=== PATIENT | female | born 1955 | race Caucasian/White ===

== ENCOUNTER → 2019-11-25 11:40 | Outpatient (BNVA) | payer OTHER, SELFPAY | PROVIDERS: PCP Nurse Practitioner Family; Referring Provider Nurse Practitioner Family; Visit Provider Orthopaedic Surgery | DX: S83.232S Complex tear of medial meniscus, current injury, left knee, sequela (principal); G89.18 Other acute postprocedural pain; Z79.899 Other long term (current) drug therapy | CPT/HCPCS: 99212 ==

== ENCOUNTER 2019-12-06 09:21 | Outpatient (REF) | payer OTHER, SELFPAY | END 2019-12-06 09:22 | disposition home or self-care (01) | LOC: HO.LAB 09:21 | PROVIDERS: Visit Provider Internal Medicine | DX: Z20.828 Contact with and (suspected) exposure to other viral communicable diseases (principal) | CPT/HCPCS: 87635 ==

== ENCOUNTER 2020-01-31 11:00 | Outpatient (RCR) | payer OTHER, SELFPAY ==
--- NOTE | 2019-12-21 13:17 | MHC.PT.EP ---
[facility] [place] Office [place] Office [place] Office [address]ía [address] [phone] F: [phone] F: [phone] F: [phone] F: [phone] Physical Therapy Plan of Care Date of Evaluation: 12/21/19 Date of Surgery: 10/13/19 Diagnosis: L knee meniscectomy Assessment: Patient is a 64 year old R handed female who presents with s/s consistent with L knee meniscectomy. She does not work but does enjoy walking and staying active. Patient past medical history includes 3 R foot surgeries and heart murmur. Current impairments include pain, ROM, strength, safety, independence, activity tolerance and functional mobility. Functional limitations include decreased ability to walk, stand, transfer, negotiate stairs, and perform weight bearing activities.. Patient is motivated with good rehab potential. Skilled PT will address impairments and functional limitations in order to achieve goals. Frequency and Duration: The patient will be seen 2x/week for 6 weeks Short Term Goals: I with HEP - 2 weeks AROM 0-120 - 3 weeks Quad set good - 3 weeks Sap Consultant Goals: Swelling absent - 5 weeks LEFS 40/80 - 5 weeks AROM 0-130 - 5 weeks STrength 4+/5 grossly - 6 weeks Treatment Plan: Modalities to reduce pain, spasms and effusion. Manual therapy to restore motion and function. Therapeutic exercise to improve strength and flexibility. Neuromuscular re-education for posture and balance. Therapeutic activities to return to functional activities of daily living. Please sign and return to therapist. Thank you for your referral.
--- NOTE | 2020-02-23 09:49 | MHC.PT.DC ---
[facility] [place] Office [place] Office [place] Office [address] Izzy García 140 [facility] [phone] F: [phone] F: [phone] F: [phone] F: [phone] Physical Therapy Discharge Report Diagnosis: L knee meniscectomy Date of Surgery: 10/13/19 Date of Evaluation: 12/21/19 Date of Discharge: 02/23/20 Treatments to Date: 9 Cancellations to Date: 0 No Shows to Date: 0 Discharge Status: Recommend MD Follow-up Discharge Summary: Was progressing well with strength and function. However, due to continued pain, elected to hold and pursue second opinion at this time. Electronically signed by: Mayo Holland PT Please sign and return to therapist. Thank you for your referral.
== END 2020-02-23 09:49 | disposition home or self-care (01) ==
LOC: HO.PTCHIC 11:00
PROVIDERS: PCP Nurse Practitioner Family; Visit Provider Orthopaedic Surgery
DX: S83.232D Complex tear of medial meniscus, current injury, left knee, subsequent encounter (principal)
CPT/HCPCS: 97110; 97112; 97140; 97161

== ENCOUNTER 2020-03-12 13:01 | Outpatient (REF) | payer OTHER, SELFPAY ==
--- NOTE | 2020-03-12 | MM_ITS ---
EXAMINATION: BONE DENSITOMETRY CLINICAL INDICATION: Screening for osteoporosis. COMPARISON: This is the patient's baseline examination. TECHNIQUE: Using a [employer] DXA System (software version: 13.1) manufactured by [employer], dual-energy x-ray absorptiometry was performed of the lumbar spine and left hip. The images are of good technical quality. Summary results are attached. FINDINGS: AP SPINE L1-L4: BMD 0.999 g/cm2, Z-score -0.3, T-score -1.5, osteopenia. LEFT FEMUR, NECK: BMD 0.686 g/cm2, Z-score -1.3, T-score -2.5, osteoporosis. LEFT FEMUR, TOTAL: BMD 0.728 g/cm2, Z-score -1.3, T-score -2.2, osteopenia. IDENTIFIED RISK FACTORS: Rheumatoid arthritis, recurrent falls. Early menopause, secondary osteoporosis. HISTORY OF FRACTURE: None listed. MEDICATIONS: Vitamin D. MM/XR DEXA axial skeleton IMPRESSION: 1. DIAGNOSIS: Osteoporosis based on the lowest T-score value of -2.5 in the femoral neck applying World Health Organization criteria. 2. 10-YEAR FRACTURE RISK PREDICTION, FRAX: Major osteoporotic fracture (clinical spine, forearm, hip or shoulder) 9.7%. Hip fracture 2.2%. 3. Treatment Recommendations: NOF guidelines recommend consideration for treatment in postmenopausal women and men age 50 and older presenting with the following: -A hip or vertebral (clinical or morphometric) fracture. -T-score less than or equal to -2.5 at the femoral neck or spine after appropriate evaluation to exclude secondary causes. -Low bone mass at the hip or spine and a 10-year fracture probability by FRAX of greater than or equal to 3% for hip fracture or greater than or equal to 20% for major osteoporotic fracture based on the [place] adapted WHO algorithm. 4. Other Recommendations: All treatment decisions require clinical judgment and consideration of individual patient factors, including patient preferences, comorbidities, previous drug use, risk factors not captured in the FRAX model (e.g. frailty, falls, vitamin D deficiency, increased bone turnover, interval significant decline in bone density) and possible under or overestimation of fracture risk by FRAX. Additional medical evaluation for secondary cause of low bone mineral density may be appropriate. FUTURE SCAN RECOMMENDATION: People with diagnosed cases of osteoporosis or at high risk for fracture should have regular bone mineral density tests. For patients eligible for Medicare, routine testing is allowed once every 2 years. The testing frequency can be increased to one year for patients who have rapidly progressing disease, those who are receiving or discontinuing medical therapy to restore bone mass, or have additional risk factors.
--- NOTE | 2020-03-12 | MM_ITS ---
EXAMINATION: MM SCREENING DIGITAL BREAST TOMOSYNTHESIS, BILATERAL CLINICAL INFORMATION: Screening. Asymptomatic. The lifetime risk of breast cancer based on the Tyrer-Cuzick Model is 9.4%. COMPARISON: Mammography: January 20, 2018 and studies dating back to June 27, 2011 TECHNIQUE: Digital breast tomosynthesis is performed in both the craniocaudal and mediolateral oblique views along with computer-aided detection (CAD). Synthesized 2D images are generated from the tomosynthesis. Exaggerated craniocaudal view of the right breast also performed. FINDINGS: The breasts are heterogeneously dense, which may obscure small masses (ACR BI-RADS breast composition Category c). There are no significant masses, abnormal calcifications, or other abnormalities. MM/MM tomosynthesis screening BI IMPRESSION: There are no significant changes from prior study. ASSESSMENT: BI-RADS 1: Negative RECOMMENDATION: Routine annual mammography screening. This patient's information was entered into a reminder system with a target due date for their next mammogram.
== END 2020-03-12 13:02 | disposition home or self-care (01) ==
LOC: HO.MAMMO 13:01
PROVIDERS: PCP Nurse Practitioner Family; Visit Provider Nurse Practitioner Family
DX: Z12.31 Encounter for screening mammogram for malignant neoplasm of breast (principal); N95.9 Unspecified menopausal and perimenopausal disorder; M81.0 Age-related osteoporosis without current pathological fracture
CPT/HCPCS: 77063; 77067; 77080

== ENCOUNTER 2020-07-12 11:24 | Outpatient (REF) | payer OTHER, SELFPAY ==
--- NOTE | ~2020-07-12 | XR_ITS ---
EXAMINATION: XR SHOULDER, RIGHT CLINICAL INFORMATION: Right shoulder pain. COMPARISON: None. TECHNIQUE: AP external rotation, Grashey, scapular Y, and axillary views of the right shoulder. FINDINGS: 2 bone anchors are seen in the humeral head. Mild degenerative changes are seen at the rotator cuff insertion at the greater tuberosity. Mild right acromioclavicular degenerative joint changes are seen. The soft tissues are unremarkable. XR/XR shoulder RT min 2V IMPRESSION: Postsurgical changes and mild degenerative changes in the right shoulder without acute abnormality.
[2020-07-12 12:12] LABS: MANUAL DIFF FLAG NO
[2020-07-12 12:19] LABS: Basophils Percent Auto 0.5 % (0-2); Eosinophils Absolute Auto 0.2 X10*3/uL (0.0-0.4); Eosinophils Percent Auto 3.2 % (0-4); Hematocrit 39.1 % (37-47); Hemoglobin 12.9 g/dl (12.0-16.0); Imm Gran Abs Auto 0.01 X10*3/uL (0.00-0.03); Imm Gran Pct Auto 0.2 % (0.0-0.4); Lymphocytes Percent Auto 35.2 % (20-40); Mean Corpuscular Hemoglobin 29.5 pg (27.0-33.0); Mean Corpuscular Volume 89.5 fL (80-98); Mean Platelet Volume 12.4 fL (9.4-12.3); Monocytes Absolute Auto 0.3 X10*3/uL (0.1-1.2); Monocytes Percent Auto 4.8 % (2-11); Neutrophils Absolute Auto 3.1 X10*3/uL (2.0-8.3); Neutrophils Percent Auto 56.1 % (45-73); Platelet Count 299 X10*3/uL (160-400); Red Blood Count 4.37 X10*6/uL (4.20-5.50); Red Cell Distribution Width 12.6 % (11.0-16.0); White Blood Count 5.6 X10*3/uL (4.8-10.8)
[2020-07-12 12:22] LABS: Estimated Average Glucose 177 mg/dL; Hemoglobin A1c % 7.8 %
[2020-07-12 12:57] LABS: Thyroid Stimulating Hormone 1.53 uIU/mL (0.32-4.0)
[2020-07-12 13:05] LABS: Alanine Aminotransferase 28 U/L (0-31); Albumin Level 4.3 g/dL (3.5-5.0); Alkaline Phosphatase 103 U/L (39-117); Anion Gap 12 (12-20); Aspartate Amino Transferase 24 U/L (5-31); Bilirubin Direct 0.3 mg/dL (0.0-0.5); Bilirubin Total 0.7 mg/dL (0.0-1.0); Blood Urea Nitrogen 13 mg/dL (9-16); Calcium 9.6 mg/dL (8.4-10.2); Carbon Dioxide 28 mmol/L (22-29); Chloride 105 mmol/L (96-108); Cholesterol 182 mg/dL; Estimated Glomerular Filt Rate > 60; Glucose Random 160 mg/dL (60-115); HDL Cholesterol 42 mg/dL; LDL Cholesterol Calculated 119 mg/dl; Potassium 4.4 mmol/L (3.3-5.1); Sodium 141 mmol/L (135-145); Total Protein 7.4 g/dL (6.5-8.0); Triglycerides 106 mg/dL
[2020-07-12 13:14] LABS: Rheumatoid Factor < 15.0 IU/mL (<15.0)
[2020-07-12 13:33] LABS: Erythrocyte Sedimentation Rate 33 MM/HR (0-20)
[2020-07-12 13:36] LABS: T4 Thyroxine 8.4 ug/dL (4.5-12.0)
[2020-07-13 10:01] LABS: Triiodothyronine T3 Total 102 ng/dL (76-181)
[2020-07-13 14:07] LABS: Anti Nuclear Antibody Screen NEGATIVE (NEGATIVE)
[2020-07-13 17:21] LABS: Cyclic Citrullinated Peptide <16 UNITS
== END 2020-07-12 11:25 | disposition home or self-care (01) ==
LOC: HO.LAB 11:24
PROVIDERS: PCP Nurse Practitioner Family; Visit Provider Nurse Practitioner Family
DX: Z00.00 Encounter for general adult medical examination without abnormal findings (principal); Z98.890 Other specified postprocedural states
CPT/HCPCS: 36415; 73030; 80048; 80061; 80076; 82306; 83036; 84436; 84443; 84480; 85025; 85652; 86038; 86039; 86140; 86200; 86431

== ENCOUNTER 2020-09-17 13:17 | Emergency (ER) | payer OTHER, SELFPAY ==
[2020-09-17 13:35] VITALS: BP 182/59; PULSE 50; RESP 18; TEMP 36.6; O2SAT 98; BMI 28.7
--- NOTE | 2020-09-17 14:54 | ED_ITS ---
HPI - Eye Problem General Chief complaint: Eye Problems Stated complaint: multiple complaints Time Seen by Provider: 09/17/20 14:22 Source: patient Mode of arrival: ambulatory Limitations: no limitations History of Present Illness HPI Narrative: This 65-year-old female with past medical history of glaucoma, hypertension, hyperlipidemia, diabetes, anxiety and depression, who uses eyedrops for glaucoma and who saw her security patrol officer 3 days ago presents for 2 weeks of bilateral eye pain. Patient states that her right eye feels like it has dirt in it, and feels scratchy. Her vision feels cloudy. Patient has had bilateral eye pain for 2 weeks, her eye doctor on Thursday said she had dry eye. She has been using refresh. The last 2 days her vision in her right eye is worsened, right eye feels scratchy like there is sand in there. She is not photophobic, no nausea or vomiting. States her eye pressure was okay at her security patrol officer on Thursday. chief complaint: eye pain Onset (ago): day(s) (2) Onset description: sudden Duration: constant Location: right eye Eye Symptoms: foreign body sensation Place: home Mechanism: other (history dry eyes) Severity: moderate Associated symptoms: none Treatments Prior to Arrival: OTC eye drops Related Data Home Medications Medication Instructions Recorded Confirmed atorvastatin PO 11/25/19 11/25/19 gabapentin 300 mg capsule 300 mg PO DAILY 11/25/19 11/25/19 metformin PO 11/25/19 11/25/19 Previous Rx's Medication Instructions Recorded diclofenac sodium 75 mg 75 mg PO BID #60 tab 11/25/19 tablet,delayed release erythromycin 5 mg/gram (0.5 %) eye 0.5 inch OPHTHALMIC (EYE) QID 5 09/17/20 ointment Days #3.5 g Allergies Allergy/AdvReac Type Severity Reaction Status Date / Time No Known Allergies Allergy Verified 11/25/19 11:57 [No Known Allergies*] Review of Systems Review of Systems: Constitutional : No Weight loss, No Fever, No Chills, No Night Sweats,No Fatigue, No Malaise ENT/Mouth : No Hearing loss, No Ear Pain, No Nasal Congestion, NoSinus Pain, No Hoarseness, No sore throat, No Rhinorrhea, NoSwallowing Difficulty Eyes: right eye pain, foreign body sensation, vision more blurry right eye No Swelling, No Redness, , NoDischarge Cardiovascular : No Chest Pain, No SOB, No Dyspnea on Exertion, NoOrthopnea, No Edema, No Palpitations Respiratory : No Cough, No Sputum, No Wheezing, No Smoke Exposure, No Dyspnea Gastrointestinal : No Nausea, No Vomiting, No Diarrhea, NoConstipation, No abdominal Pain, No Hematochezia, No Melena Genitourinary : no irregular bleeding, No Dysuria, No UrinaryFrequency, No Hematuria, No Urinary Incontinence, No Urgency, No FlankPain, No Urinary Flow Changes, No Hesitancy Musculoskeletal : No joint pain, No Myalgias, No Joint Swelling Skin : No Skin Lesions, No rash Neuro : No Weakness, No Numbness, No Paresthesias, No Loss ofConsciousness, No Dizziness, No Headache Psych : No Anxiety/Panic, No Depression, No SI/HI/AH/VH, No Social Issues, Heme/Lymph: No Bruising, No Bleeding,No Lymphadenopathy Endocrine : No Polyuria, No Polydipsia, No Temperature Intolerance Yes all other systems are reviewed and are negative [facility] Past Medical History Medical History Diabetes Glaucoma High blood pressure High cholesterol Social History Social History Alcohol intake: never Advance Directives: Yes Advance Directives Information Provided: Yes Advance Directives on File: No Current occupational status: unemployed Current occupation: Right Handed Physical Exam Vital Signs: Vital Signs: Last Vital Signs Temp 97.9 F 09/17/20 13:35 Pulse 50 09/17/20 13:35 Resp 18 09/17/20 13:35 BP 182/59 H 09/17/20 13:35 Pulse Ox 98 09/17/20 13:35 Body Mass Index 28.7 Appearance: Alert. Oriented X3. No acute distress. Head: Normal external exam. Normocephalic. Atraumatic. ?No Chase signs noted. No raccoon eyes noted Eyes: PERRLA. EOMI. Conjunctiva and sclera normal. Eyelids normal. Fluorescein stain reveals small punctate corneal abrasion. Kam-Pen shows intra-ocular pressure of 80 in right eye and intraocular pressure of 12 in left eye ENT: EAC normal. TM's Normal. Pharynx normal. Uvula midline. Moist mucous membranes. ??No trismus noted. ?No drooling noted. ?No muffled voice noted. Neck: Normal inspection. Neck supple. FROM. No adenopathy. Thyroid Normal. No meningeal signs. No neck mass noted. CVS: Normal heart rate and rhythm. Heart sound normal. Pulses normal throughout. ?No murmurs/rales/gallops. Respiratory: No respiratory distress. Painless inspiration. Breath sounds normal. No wheezes/rales/rhonchi noted. Chest nontender. ??No accessory muscle usage noted or decreased air movement noted. Abdomen: Soft and nontender. Bowel sounds normal in all 4 quadrants. No distention noted. ?No organomegaly noted. ?No visible injury noted. Back: ?No CVA tenderness. ?Full range of motion noted. ?No rashes/lesion/induration/fluctuance or signs of infection noted. Skin: Skin warm and dry. ?Normal skin color. ?Normal skin turgor. No rashes/lesions/lacerations noted. Extremities: No lower extremity edema. ??Extremities exhibit normal range of motion. ?Extremities nontender. Neuro: Oriented X 3. ?No motor deficit. ?No sensory deficit. ?Reflexes normal. ?Normal steady gait. ?No focal neuro deficits noted. Vascular: + radial pulses/+ 2 distal pedal pulses/+2 dorsalis pedis b/l. ?Normal cap refill. ?No cyanosis noted to upper extremity nails and lower extremity toes nails. Course Course Course Narrative: 65-year-old female with past medical history of glaucoma and dryeyes, who saw her security patrol officer on Thursday and reports a normal exam, presents for 2 days of right eye pain. Patient feels she has sand in her eye, it feels scratchy and like her vision is blurry. She is using her glaucoma drops. On exam, patient has pupils equal and reactive to light, normal accommodation, normal visual roman by confrontation, intact EOMs. On exam, there is no injected conjunctivae, patient has no foreign body under her eyelids. Kam-Pen shows no increased intra-ocular pressure. Fluorescein stain shows punctate corneal abrasion at 2 o'clock.. Treated patient with erythromycin ointment, gave her [facility] phone number as our security patrol officer is on vacation this week. Consulted patient to follow-up with [facility] tomorrow. Gave return precautions. Discharge Plan Discharge Clinical Impression: Corneal abrasion Qualifiers: Encounter type: initial encounter Laterality: right Qualified Code(s): S05.01XA - Injury of conjunctiva and corneal abrasion without foreign body, right eye, initial encounter Patient Disposition: Home, Self-Care Instructions: Corneal Abrasion (ED) Additional Instructions: Please send prescription for antibiotic eye ointment and use for the next 5 days. Please call [facility] for a follow up appointment tomorrow. The phone number is [phone]. Please return to the emergency room if you have any sudden visual changes, worsening eye pain, sudden headache, nausea or vomiting Prescriptions: New erythromycin 5 mg/gram (0.5 %) ointment 0.5 inch ophthalmic (eye) QID 5 Days Qty: 3.5 RF: 0 No Action gabapentin 300 mg capsule 300 mg PO DAILY RF: 0 metformin PO RF: 0 atorvastatin PO RF: 0 diclofenac sodium 75 mg tablet,delayed release (DR/EC) 75 mg PO BID Qty: 60 RF: 2 Interventions: ED Discharge Assessment Last Done: 09/17/20 15:24 Discharge Date/Time: 09/17/20 15:24
[2020-09-17] MEDS: Fluorescein Sodium STRIP 1 STRIP EYE-RIGHT (15:13)
[2020-09-17] MEDS: Tetracaine HCl/PF 0.5% Oph Sol 4 ML DROPS 3 DROP EYE-RIGHT (15:14)
== END 2020-09-17 15:24 | disposition home or self-care (01) ==
PROVIDERS: Emergency Provider Emergency Medicine; PCP Nurse Practitioner Family
DX: S05.01XA Injury of conjunctiva and corneal abrasion without foreign body, right eye, initial encounter (principal); H57.13 Ocular pain, bilateral; X58.XXXA Exposure to other specified factors, initial encounter; Y93.9 Activity, unspecified; Y92.9 Unspecified place or not applicable; Y99.9 Unspecified external cause status; Z79.899 Other long term (current) drug therapy
CPT/HCPCS: 99283

== ENCOUNTER 2020-09-19 10:26 | Emergency (ER) | payer OTHER, SELFPAY ==
[2020-09-19 10:38] VITALS: BP 153/52; PULSE 49; RESP 16; TEMP 36.9; O2SAT 96; BMI 28.7
--- NOTE | 2020-09-19 12:49 | ED_ITS ---
HPI - Eye Problem General Chief complaint: Eye Problems Stated complaint: eye issues Time Seen by Provider: 09/19/20 11:37 History of Present Illness HPI Narrative: Patient complains of scratchy feeling in the right eye for the last 2 weeks, she did see her eye doctor Dr. Hernandez 5 days ago for this same problem and he felt it was because her eye was dry and she continues to have the same feeling with no vision loss no discharge from the eye no of pain with light no injury Related Data Home Medications Medication Instructions Recorded Confirmed atorvastatin PO 11/25/19 11/25/19 gabapentin 300 mg capsule 300 mg PO DAILY 11/25/19 11/25/19 metformin PO 11/25/19 11/25/19 Previous Rx's Medication Instructions Recorded diclofenac sodium 75 mg 75 mg PO BID #60 tab 11/25/19 tablet,delayed release erythromycin 5 mg/gram (0.5 %) eye 0.5 inch OPHTHALMIC (EYE) QID 5 09/17/20 ointment Days #3.5 g Allergies Allergy/AdvReac Type Severity Reaction Status Date / Time No Known Allergies Allergy Verified 11/25/19 11:57 [No Known Allergies*] Review of Systems Review of Systems: Positive for scratchy feeling in the right eye Negatives are no fever no chills no dizziness no headache no skin rash no photophobia no discharge from the eye no loss of vision Yes all other systems are reviewed and are negative REPLACED BY [facility] Past Medical History Source: nursing notes reviewed Medical History Diabetes Glaucoma High blood pressure High cholesterol Social History Social History Alcohol intake: never Current occupational status: unemployed Current occupation: Right Handed Physical Exam Vital Signs: Vital Signs: Last Vital Signs Temp 98.5 F 09/19/20 10:38 Pulse 49 L 09/19/20 10:38 Resp 16 09/19/20 10:38 BP 153/52 H 09/19/20 10:38 Pulse Ox 96 09/19/20 10:38 Body Mass Index 28.7 Course Course Course Narrative: I did a brief history with this patient but did not do a physical exam and she eloped from the ER Nursing had done a visual acuity which was 20/40 bilaterally My brief interaction with her she did not appear to have any photophobia or discharge from her eyes and her extraocular motions were intact but I did not do any close eye exam and no further exam was possible as patient was gone Discharge Plan Discharge Clinical Impression: Eye irritation Patient Disposition: Elopement Prescriptions: No Action erythromycin 5 mg/gram (0.5 %) ointment 0.5 inch ophthalmic (eye) QID 5 Days Qty: 3.5 RF: 0 gabapentin 300 mg capsule 300 mg PO DAILY RF: 0 metformin PO RF: 0 atorvastatin PO RF: 0 diclofenac sodium 75 mg tablet,delayed release (DR/EC) 75 mg PO BID Qty: 60 RF: 2 Interventions: ED Discharge Assessment Last Done: 09/19/20 13:02 Discharge Date/Time: 09/19/20 11:55
== END 2020-09-19 11:55 | disposition left against medical advice (07) ==
PROVIDERS: Emergency Provider Emergency Medicine Emergency Medical Services
DX: H57.89 Other specified disorders of eye and adnexa (principal); E11.9 Type 2 diabetes mellitus without complications; Z79.84 Long term (current) use of oral hypoglycemic drugs
CPT/HCPCS: 99283; 99284

== ENCOUNTER → 2020-12-07 12:59 | Outpatient (BNVA) | payer OTHER, SELFPAY | PROVIDERS: Visit Provider Physician Assistant | DX: S83.232D Complex tear of medial meniscus, current injury, left knee, subsequent encounter (principal); Z98.1 Arthrodesis status | CPT/HCPCS: 99212 ==

== ENCOUNTER 2021-01-28 11:22 | Outpatient (REF) | payer OTHER, SELFPAY ==
[2021-01-28 12:41] LABS: COVID-19 Test Negative (Negative); IDNOW Serial# 16C4AD1C
== END 2021-01-28 11:23 | disposition home or self-care (01) ==
LOC: HO.LAB 11:22
PROVIDERS: Visit Provider Internal Medicine
DX: Z20.822 Contact with and (suspected) exposure to COVID-19 (principal)
CPT/HCPCS: 36415; 87635; C9803

== ENCOUNTER 2021-02-13 10:34 | Emergency (ER) | payer OTHER, SELFPAY ==
--- NOTE | ~2021-02-13 | CT_ITS ---
EXAMINATION: CT HEAD WITHOUT CONTRAST CLINICAL INFORMATION: Headache COMPARISON: CT had noncontrast 08/31/2015 TECHNIQUE: Contiguous axial imaging was performed from the skull base to vertex without intravenous administration of contrast. This CT examination was performed using dose optimization techniques as appropriate, variously including the following: *Automated exposure control *Adjustment of mA and/or kV according to patient size (this includes techniques or standardized protocols for targeted exams where dose is matched to indication/reason for exam; i.e. extremities or head) *Use of iterative reconstruction technique DLP: 659 mGy-cm FINDINGS: There is no intracranial hemorrhage, hematoma, or extra-axial fluid collection. The ventricles are normal in size. There is no hydrocephalus, edema, or mass effect. The diego-white matter differentiation appears well preserved . There is a small oval lacunar infarct in the region of the right anterior internal capsule just lateral to the caudate head. Finding not seen with certainty on prior CT 2016. No mass effect or edema in this area. There is no visible acute territorial infarct or mass lesion. The calvarium appears intact. There is no pneumocephalus or orbital emphysema. The visualized sinuses and middle ears and mastoid air cells show no significant mucosal thickening. There are no air-fluid levels. CT/CT head/brain wo con IMPRESSION: 1. Lacunar infarct right anterior internal capsule, new from prior CT 2016. 2. No mass effect or edema. No intracranial hemorrhage.
[2021-02-13 11:52] VITALS: BP 181/76; PULSE 83; RESP 16; TEMP 36.8; O2SAT 96; BMI 29.2
--- NOTE | 2021-02-13 15:28 | ED_ITS ---
HPI - Headache General Chief Complaint: Headache Stated Complaint: headache 4months Time Seen by Provider: 02/13/21 14:52 Source: patient Mode of arrival: ambulatory Limitations: no limitations History of Present Illness HPI Narrative: 65-year-old female presents to the emergency department with 5-6 months of recurrent headaches. They been intermittent she has been treating them with Tylenol or ibuprofen. Her last dose of anything with several hours ago. She states she has talked to her primary care doctor over the phone. She was told that this most likely a migraine. Patient denies any history of migraine she states she has no photophobia or phonophobia she has history of neck strains. She states the location of the headache is migratory in his move all overhead at this time is on her left parietal area. She denies any falls or injuries she denies nausea vomiting or diarrhea she states she has had normal appetite. Of note the patient is in the room with a full Mera male that she just finished. Related Data Home Medications Medication Instructions Recorded Confirmed atorvastatin PO 11/25/19 11/25/19 gabapentin 300 mg capsule 300 mg PO DAILY 11/25/19 11/25/19 metformin PO 11/25/19 11/25/19 Previous Rx's Medication Instructions Recorded diclofenac sodium 75 mg 75 mg PO BID #60 tab 11/25/19 tablet,delayed release erythromycin 5 mg/gram (0.5 %) eye 0.5 inch OPHTHALMIC (EYE) QID 5 09/17/20 ointment Days #3.5 g Aqua Therapy #1 ea 12/07/20 Allergies Allergy/AdvReac Type Severity Reaction Status Date / Time No Known Allergies Allergy Verified 11/25/19 11:57 [No Known Allergies*] Review of Systems Review of Systems: Review of systems: General: Patient denies any fever chills recent illness or falls Musculoskeletal: Denies back pain or body aches or other injuries HEENT: Headache denies runny nose, ear pain Respiratory: denies shortness of breath, cough Cardiovascular: no chest pain or palpitations : denies dysuria, frequency Abdomen: no nausea vomiting denies abdominal pain Extremities: no swelling, no pain Skin: no diaphoresis Yes all other systems are reviewed and are negative [facility] Past Medical History Medical History Diabetes Glaucoma High blood pressure High cholesterol Social History Social History Alcohol intake: never Advance Directives: No Advance Directives Information Provided: Yes Current occupational status: unemployed Current occupation: Right Handed Physical Exam Vital Signs: Vital Signs: Last Vital Signs Temp 98.3 F 02/13/21 11:52 Pulse 83 02/13/21 11:52 Resp 16 02/13/21 11:52 BP 181/76 H 02/13/21 11:52 Pulse Ox 96 02/13/21 11:52 BMI result Body Mass Index 29.2 Neurological exam: CN II- XII tested. Patient is alert and oriented to person place and time. Patient has no dysphagia or dysarthia, denies good vision in all four vision roman no nystagmus on exam, good strength to upper and lower extremities with normal reflexes to brachioradialis, wrist, patella and achilles. Negative romberg, good finger to nose and heel to lantigua. General: Well-appearing well-nourished in no signs of distress HEENT: Normocephalic atraumatic Neck: No signs of JVD, no masses no tenderness or lymphadenopathy Cardiovascular: Regular rate and rhythm Respiratory: Clear to auscultation bilaterally Abdomen: Soft nontender no masses Extremities: Normal pedal pulses no signs of edema Skin: Dry warm no rashes Back: No tenderness full ROM MDM - Headache MDM Narrative Medical decision making narrative: 65-year-old female with headache for months patient has a very benign exam on arrival patient. She has had no neuro imaging so getting CT of the head all treated with Toradol and Tylenol. 1652 CT of the head is negative patient likely has migraine I will send patient home with PCP follow-up. Discharge Plan Discharge Clinical Impression: Headache Patient Disposition: Home, Self-Care Instructions: General Headache (ED) Additional Instructions: Please call follow-up your doctor if you have any other concerns please do not hesitate to come back to the emergency department. Prescriptions: No Action erythromycin 5 mg/gram (0.5 %) ointment 0.5 inch ophthalmic (eye) QID 5 Days Qty: 3.5 RF: 0 gabapentin 300 mg capsule 300 mg PO DAILY RF: 0 metformin PO RF: 0 atorvastatin PO RF: 0 diclofenac sodium 75 mg tablet,delayed release (DR/EC) 75 mg PO BID Qty: 60 RF: 2 (DME) Aqua Therapy See Rx Instructions .Route .[facility] Qty: 1 RF: 0
[2021-02-13] MEDS: Acetaminophen 325 MG TABLET 650 MG PO (15:45)
[2021-02-13] MEDS: Ketorolac Tromethamine 30 MG/ML VIAL 15 MG IM (15:45)
== END 2021-02-13 17:00 | disposition home or self-care (01) ==
PROVIDERS: Emergency Provider Student in an Organized Health Care Education/Training Program
DX: R51.9 Headache, unspecified (principal); E11.9 Type 2 diabetes mellitus without complications
CPT/HCPCS: 70450; 96372; 99283; 99284; J1885

== ENCOUNTER 2021-04-18 12:37 | Outpatient (REF) | payer OTHER, SELFPAY ==
--- NOTE | ~2021-04-18 | XR_ITS ---
EXAMINATION: XR KNEE STANDING, BILATERAL XR KNEE, RIGHT CLINICAL INFORMATION: Pain in the right knee. COMPARISON: MRI of the left knee August 2019. X-ray of the left knee December 2018. X-ray of the right knee November 2012. TECHNIQUE: Upright view of both knees. Lateral and patella views of the right knee FINDINGS: RIGHT KNEE: Patellofemoral compartment: Mild arthrosis manifested by mild joint space narrowing and probable small subchondral cystic change stable compared to prior. The medial and lateral compartments are normal. There is no effusion. LIMITED LEFT KNEE UPRIGHT: Mild osteoarthritis of the medial and lateral compartments manifested by small marginal osteophytes. XR/XR knee standing BI IMPRESSION: 1. Right knee: Mild osteoarthritis involving the patellofemoral compartment unchanged compared to prior x-ray in 2012. 2. Left knee Limited: Mild osteoarthritis unchanged.
--- NOTE | ~2021-04-18 | XR_ITS ---
EXAMINATION: XR KNEE STANDING, BILATERAL XR KNEE, RIGHT CLINICAL INFORMATION: Pain in the right knee. COMPARISON: MRI of the left knee August 2019. X-ray of the left knee December 2018. X-ray of the right knee November 2012. TECHNIQUE: Upright view of both knees. Lateral and patella views of the right knee FINDINGS: RIGHT KNEE: Patellofemoral compartment: Mild arthrosis manifested by mild joint space narrowing and probable small subchondral cystic change stable compared to prior. The medial and lateral compartments are normal. There is no effusion. LIMITED LEFT KNEE UPRIGHT: Mild osteoarthritis of the medial and lateral compartments manifested by small marginal osteophytes. XR/XR knee RT 2V IMPRESSION: 1. Right knee: Mild osteoarthritis involving the patellofemoral compartment unchanged compared to prior x-ray in 2012. 2. Left knee Limited: Mild osteoarthritis unchanged.
== END 2021-04-18 12:38 | disposition home or self-care (01) ==
LOC: HO.HOSX 12:37
PROVIDERS: Visit Provider Physician Assistant
DX: M25.561 Pain in right knee (principal); M25.562 Pain in left knee
CPT/HCPCS: 73560; 73565; 99212

== ENCOUNTER 2021-05-01 11:53 | Outpatient (REF) | payer OTHER, SELFPAY ==
--- NOTE | ~2021-05-01 | XR_ITS ---
EXAMINATION: XR SHOULDER, RIGHT CLINICAL INFORMATION: Pain in right shoulder. COMPARISON: X-ray of the right shoulder July 2020. TECHNIQUE: Three views of the right shoulder. FINDINGS: Metallic densities in the right humeral head greater tuberosity region compatible with prior surgery unchanged. Glenohumeral joint normal. Possible partial resection of distal clavicle unchanged. XR/XR shoulder RT min 2V IMPRESSION: Stable postsurgical changes. No acute abnormality. No change.
== END 2021-05-01 11:54 | disposition home or self-care (01) ==
LOC: HO.HOSX 11:53
PROVIDERS: Visit Provider Physician Assistant
DX: M75.21 Bicipital tendinitis, right shoulder (principal); M75.81 Other shoulder lesions, right shoulder
CPT/HCPCS: 20610; 73030; 99212; J1020

== ENCOUNTER 2021-05-09 09:33 | Outpatient (REF) | payer OTHER, SELFPAY ==
[2021-05-09 10:58] LABS: Cholesterol 176 mg/dL; HDL Cholesterol 48 mg/dL; LDL Cholesterol Calculated 86 mg/dl; Triglycerides 212 mg/dL
== END 2021-05-09 09:34 | disposition home or self-care (01) ==
LOC: HO.LAB 09:33
PROVIDERS: PCP Family Medicine; Visit Provider Family Medicine
DX: E11.42 Type 2 diabetes mellitus with diabetic polyneuropathy (principal)
CPT/HCPCS: 36415; 80061

== ENCOUNTER 2021-06-03 10:03 | Outpatient (REF) | payer OTHER, SELFPAY | END 2021-06-03 10:04 | disposition home or self-care (01) | LOC: HO.MAMMO 10:03 | PROVIDERS: PCP Family Medicine; Visit Provider Orthopaedic Surgery | DX: M17.10 Unilateral primary osteoarthritis, unspecified knee (principal); E11.9 Type 2 diabetes mellitus without complications; I10 Essential (primary) hypertension; E78.00 Pure hypercholesterolemia, unspecified | CPT/HCPCS: 99212 ==

== ENCOUNTER → 2021-06-24 09:47 | Outpatient (BNVA) | payer OTHER, SELFPAY | PROVIDERS: PCP Family Medicine; Visit Provider Nurse Practitioner Family | DX: M25.561 Pain in right knee (principal); M19.90 Unspecified osteoarthritis, unspecified site; M17.10 Unilateral primary osteoarthritis, unspecified knee | CPT/HCPCS: 99202 ==

== ENCOUNTER 2021-07-18 14:15 | Outpatient (REF) | payer OTHER, SELFPAY ==
--- NOTE | ~2021-07-18 | MR_ITS ---
EXAMINATION: MR SHOULDER WITHOUT CONTRAST, RIGHT CLINICAL INFORMATION: Patient reports shoulder pain. Patient reports prior rotator cuff surgery x2. COMPARISON: X-ray 05/01/2021 TECHNIQUE: MRI of the shoulder without contrast was performed on a high-field scanner. FINDINGS: Motion artifact degrading images, limiting evaluation. ROTATOR CUFF: Postsurgical changes in the greater tuberosity and humeral head. There is a metallic anchor with associated artifact. The mid to distal portion of the supraspinatus and infraspinatus tendons are difficult to visualize, with motion artifact degrading images. There may be thin irregular tendon tissue present in this region.. Full-thickness defects cannot be excluded on the provided images. Teres minor is intact. Mild subscapularis tendinosis. No muscle atrophy or fatty infiltration. BICEPS: The proximal biceps tendon is not clearly visualize, may be related to postsurgical CORACOACROMIAL ARCH: The undersurface of the acromion is curved with no subacromial spur. Mild acromioclavicular arthritis. Small fluid in the subacromial subdeltoid space. LABRUM/CAPSULE: Motion artifact limits evaluation. The superior labrum is not well visualized. No focal labral tear is otherwise seen. GLENOHUMERAL JOINT/MARROW: Mild glenohumeral joint arthritis. Postsurgical changes as detailed above. Small joint fluid. MR/MR shoulder RT wo con IMPRESSION: Additional artifact degrading images, limiting evaluation. 1. Postsurgical changes in the greater tuberosity/humeral head. The supraspinatus and infraspinatus tendons are not clearly visualized, with possible thin irregular attenuated tendon tissue present in this region. Full-thickness defects cannot be excluded. The integrity of the tendons is not been confirmed. Repeat MRI or MRI arthrogram can be obtained for further evaluation as clinically warranted. 2. Mild subscapularis tendinosis. 3. Nonvisualization of proximal biceps tendon suggesting postsurgical changes. Correlate with surgical history. 4. Mild acromioclavicular arthritis. 5. Limited evaluation of the labrum, especially the superior labrum. No definite labral tear is seen. 6 . Mild glenohumeral joint arthritis.
== END 2021-07-18 14:16 | disposition home or self-care (01) ==
LOC: HO.MRI 14:15
PROVIDERS: Visit Provider Physician Assistant
DX: M75.80 Other shoulder lesions, unspecified shoulder (principal)
CPT/HCPCS: 73221

== ENCOUNTER 2021-07-22 13:11 | Outpatient (REF) | payer OTHER, SELFPAY ==
--- NOTE | ~2021-07-22 | MM_ITS ---
EXAMINATION: MM SCREENING DIGITAL BREAST TOMOSYNTHESIS, BILATERAL CLINICAL INFORMATION: Screening. Asymptomatic. The lifetime risk of breast cancer based on the Tyrer-Cuzick Model is 8%. COMPARISON: Mammography: 03/12/2020, 01/20/2018, 01/02/2018 TECHNIQUE: Digital breast tomosynthesis is performed in both the craniocaudal and mediolateral oblique views along with computer-aided detection (CAD). Synthesized 2D images are generated from the tomosynthesis. FINDINGS: The breasts are heterogeneously dense, which may obscure small masses (ACR BI-RADS breast composition Category c). There are no significant masses, abnormal calcifications, or other abnormalities. No developing density or interval architectural changes. No significant changes from prior studies. MM/MM tomosynthesis screening BI IMPRESSION: No mammographic evidence of malignancy. ASSESSMENT: BI-RADS 1: Negative RECOMMENDATION: Routine annual mammography screening. This patient's information was entered into a reminder system with a target due date for their next mammogram.
== END 2021-07-22 13:12 | disposition home or self-care (01) ==
LOC: HO.MAMMO 13:11
PROVIDERS: Visit Provider Family Medicine
DX: Z12.31 Encounter for screening mammogram for malignant neoplasm of breast (principal)
CPT/HCPCS: 77063; 77067

== ENCOUNTER 2021-07-23 06:15 | Outpatient (REF) | payer OTHER, SELFPAY ==
--- NOTE | ~2021-07-23 | FL_ITS ---
EXAMINATION: XR FLUOROSCOPY WITH IMAGES CLINICAL INFORMATION: M25.561 - Pain in right knee COMPARISON: Radiographs right knee 04/18/2021 TECHNIQUE: Fluoroscopy performed by Dr. Taurus Alejo. Fluoroscopy time: 0.2 minutes DAP: 0.480 Gycm2 Images: 2 FINDINGS: There are spinal needles adjacent to the distal femoral shaft, medial and lateral sides, mid depth. There is a spinal needle adjacent to the proximal tibia on medial side mid depth. FL/FL guidance in treatment room IMPRESSION: Fluoroscopy for pain management procedures.
== END 2021-07-23 06:16 | disposition home or self-care (01) ==
LOC: HO.RADIR 06:15
PROVIDERS: Visit Provider Anesthesiology
DX: M17.11 Unilateral primary osteoarthritis, right knee (principal)
CPT/HCPCS: 64454

== ENCOUNTER → 2021-07-29 12:14 | Outpatient (BNVA) | payer OTHER, SELFPAY | PROVIDERS: PCP Family Medicine; Visit Provider Orthopaedic Surgery | DX: M75.80 Other shoulder lesions, unspecified shoulder (principal) | CPT/HCPCS: 99212 ==

== ENCOUNTER 2021-07-30 09:58 | Outpatient (REF) | payer OTHER, SELFPAY ==
--- NOTE | ~2021-07-30 | XR_ITS ---
EXAMINATION: XR FOOT, RIGHT XR FOOT, LEFT CLINICAL INFORMATION: Bilateral foot pain. COMPARISON: Radiographs right foot 01/10/2019, radiographs left foot 04/19/2009. TECHNIQUE: Each foot is imaged in 3 views. There are total of 6 views. FINDINGS: Right: There has been prior arthrodesis subtalar joint and calcaneocuboid. 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 This could be further characterized with noncontrast CT foot if clinically indicated. No fracture, dislocation, destructive process or osteolysis. There are moderate posterior and smaller plantar calcaneal spurs. Retrocalcaneal recess is preserved. No focal narrowing or erosive change MTP or interphalangeal joints. There is mild hallux valgus of approximately 21 degrees. Left: No fracture, dislocation, destructive process. Moderate posterior and plantar calcaneal spurs. Retrocalcaneal recess preserved. Subtalar joint unremarkable. 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 This could be further characterized with noncontrast CT fluid if clinically indicated. The MCP and interphalangeal joints show no narrowing or erosive change. XR/XR foot LT min 3V IMPRESSION: Right: -Postsurgical changes. Hardware intact. 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 -Mild hallux valgus. -Calcaneal spurs. 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 -Calcaneal spurs.
--- NOTE | ~2021-07-30 | XR_ITS ---
EXAMINATION: XR FOOT, RIGHT XR FOOT, LEFT CLINICAL INFORMATION: Bilateral foot pain. COMPARISON: Radiographs right foot 01/10/2019, radiographs left foot 04/19/2009. TECHNIQUE: Each foot is imaged in 3 views. There are total of 6 views. FINDINGS: Right: There has been prior arthrodesis subtalar joint and calcaneocuboid. 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 This could be further characterized with noncontrast CT foot if clinically indicated. No fracture, dislocation, destructive process or osteolysis. There are moderate posterior and smaller plantar calcaneal spurs. Retrocalcaneal recess is preserved. No focal narrowing or erosive change MTP or interphalangeal joints. There is mild hallux valgus of approximately 21 degrees. Left: No fracture, dislocation, destructive process. Moderate posterior and plantar calcaneal spurs. Retrocalcaneal recess preserved. Subtalar joint unremarkable. 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 This could be further characterized with noncontrast CT fluid if clinically indicated. The MCP and interphalangeal joints show no narrowing or erosive change. XR/XR foot RT min 3V IMPRESSION: Right: -Postsurgical changes. Hardware intact. 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 -Mild hallux valgus. -Calcaneal spurs. 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 -Calcaneal spurs.
== END 2021-07-30 09:59 | disposition home or self-care (01) ==
LOC: HO.XRAY 09:58
PROVIDERS: Visit Provider Nurse Practitioner Family
DX: M79.671 Pain in right foot (principal); M79.672 Pain in left foot; G89.29 Other chronic pain; Z98.1 Arthrodesis status
CPT/HCPCS: 73630; 99212

== ENCOUNTER 2021-08-02 12:47 | Outpatient (REF) | payer OTHER, SELFPAY ==
--- NOTE | ~2021-08-02 | US_ITS ---
EXAMINATION: US BREAST, right CLINICAL INFORMATION: Heterogenously dense fibroglandular tissue. Right breast ultrasound. COMPARISON: Prior mammograms. MAMMOGRAPHY: Previous mammogram dated July 22, 2021 was reviewed on a nondiagnostic monitor. TECHNIQUE: High-resolution grayscale sonography of the breasts was performed by a technologist with a high-frequency linear transducer following a standardized protocol. All 4 quadrants and the axilla were examined. The retroareolar region was examined. FINDINGS: On the images submitted for review, no suspicious mass, area of architectural distortion, complex cyst or other sonographically suspicious lesion is identified in the right breast. US/US breast RT complete IMPRESSION: No sonographic evidence of malignancy in the right breast. ASSESSMENT: Right breast: BI-RADS 1 - negative.. RECOMMENDATIONS: Continue mammographic screening. This patient?s information was entered in to a reminder system with a target due date for their next mammogram.
--- NOTE | ~2021-08-02 | US_ITS ---
EXAMINATION: US BREAST, left CLINICAL INFORMATION: Heterogenously dense fibroglandular tissue. Left breast ultrasound. COMPARISON: Prior mammography MAMMOGRAPHY: Previous mammogram dated July 22, 2021 was reviewed on a nondiagnostic monitor. TECHNIQUE: High-resolution grayscale sonography of the breasts was performed by a technologist with a high-frequency linear transducer following a standardized protocol. All 4 quadrants and the axilla were examined on the left.. The retroareolar region was examined. FINDINGS: On the images submitted for review, no suspicious mass, area of architectural distortion, complex cyst or other sonographically suspicious lesion is identified in the left breast. US/US breast LT complete IMPRESSION: No sonographic evidence of malignancy in the left breast. ASSESSMENT: Left breast: BI-RADS 1 - negative. RECOMMENDATIONS: Continue mammographic screening. This patient?s information was entered in to a reminder system with a target due date for their next mammogram.
== END 2021-08-02 12:48 | disposition home or self-care (01) ==
LOC: HO.MAMMO 12:47
PROVIDERS: Visit Provider Family Medicine
DX: R92.2 Inconclusive mammogram (principal)
CPT/HCPCS: 76641

== ENCOUNTER 2021-09-09 11:38 | Outpatient (REF) | payer OTHER, SELFPAY ==
[2021-09-09 12:19] LABS: COVID-19 Test Negative (Negative)
== END 2021-09-09 11:39 | disposition home or self-care (01) ==
LOC: HO.LAB 11:38
PROVIDERS: Visit Provider Internal Medicine
DX: Z20.822 Contact with and (suspected) exposure to COVID-19 (principal)
CPT/HCPCS: 87635; C9803

== ENCOUNTER → 2021-10-11 10:29 | Day surgery (SDC) | payer OTHER, SELFPAY ==
--- NOTE | 2021-10-10 10:45 | HO.ANESPROP2 ---
HPI - Anesthesia Eval Consult details Narrative: 66yo F for Right Peripheral Nerve SPRINT Stimulator Temporary Implant (Patellofemoral) PMFSH Active Problems Active Problems: All Active Problems (Updated 07/30/21 @ 09:50 by SWAPNIL Castellanos) Chronic pain of both feet (Acute) Right knee pain (Acute) Osteoarthritis (Acute) Rotator cuff tendonitis (Acute) Biceps tendonitis on right (Acute) Patellofemoral arthritis (Acute) H/O ankle fusion (Acute) Aftercare following surgery for injury or trauma (Acute) Complex tear of medial meniscus, current injury, left knee, sequela (Acute) Past Medical History Medical History Diabetes Glaucoma High blood pressure High cholesterol Social History Social History Alcohol intake: never Current occupational status: unemployed Current occupation: Right Handed Meds Allergies Allergy/AdvReac Type Severity Reaction Status Date / Time No Known Allergies Allergy Verified 07/30/21 09:35 [No Known Allergies*] Home Medications Medication Instructions Recorded Confirmed Last Taken Type gabapentin 300 mg capsule 300 mg PO DAILY 11/25/19 04/18/21 Unknown History bupropion HCl 150 mg 24 hr tablet, 150 mg PO DAILY PRN 06/24/21 Unknown History extended release clonazepam 1 mg tablet 1 mg PO BID 06/24/21 Unknown History duloxetine 60 mg capsule,delayed 60 mg PO QAM 06/24/21 Unknown History release lancets 28 gauge (FreeStyle #100 ea 06/24/21 Unknown History Lancets) atorvastatin 40 mg tablet 40 mg PO DAILY PRN 07/30/21 Unknown History brimonidine 0.2 % eye drops 1 drp ophthalmic (eye) 07/30/21 Unknown History cholecalciferol (vitamin D3) 50 50 mcg PO DAILY 07/30/21 Unknown History mcg (2,000 unit) capsule dorzolamide 22.3 mg-timolol 6.8 1 drp ophthalmic-Right BID 07/30/21 Unknown History mg/mL eye drops hydrochlorothiazide 12.5 mg capsule 12.5 mg PO DAILY 07/30/21 Unknown History losartan 100 mg tablet 100 mg PO DAILY 07/30/21 Unknown History metformin 1,000 mg tablet 1,000 mg PO BID 07/30/21 Unknown History Exam Exam Date and Time: October 10, 2021 1045 Assessment and Plan Assessment Anesthesia Assessment: Chart Reviewed
[2021-10-11 07:13] VITALS: BMI 29.6
[2021-10-11 11:29] LABS: Glucose, Whole Blood 177 mg/dL (60-115)
[2021-10-11 11:30] VITALS: BP 110/64; PULSE 54; RESP 19; TEMP 36.1; O2SAT 96
[2021-10-11] MEDS: Lactated Ringers 1,000 ML 100 ML IVCONT (11:43)
--- NOTE | 2021-10-11 12:31 | PC.NURSE ---
SURGERY CANCELLED PER DR VERA SURGERY NOT INDICTED PT AWARE IV D/MICHEAL RIDE CALLED
== END ==
PROVIDERS: PCP Family Medicine; Visit Provider Anesthesiology
DX: M17.10 Unilateral primary osteoarthritis, unspecified knee (principal); M25.561 Pain in right knee; Z53.8 Procedure and treatment not carried out for other reasons; I10 Essential (primary) hypertension; E78.00 Pure hypercholesterolemia, unspecified; E11.9 Type 2 diabetes mellitus without complications; H40.9 Unspecified glaucoma; Z79.84 Long term (current) use of oral hypoglycemic drugs; Z79.899 Other long term (current) drug therapy; Z87.891 Personal history of nicotine dependence
CPT/HCPCS: 82947; 99212; J0690; J2250

== ENCOUNTER → 2021-10-28 10:30 | Outpatient (BNVA) | payer OTHER, SELFPAY | PROVIDERS: PCP Family Medicine; Visit Provider Orthopaedic Surgery | DX: M17.10 Unilateral primary osteoarthritis, unspecified knee (principal) | CPT/HCPCS: 99212 ==

== ENCOUNTER → 2021-12-09 12:47 | Outpatient (BNVA) | payer OTHER, SELFPAY | PROVIDERS: PCP Family Medicine; Visit Provider Internal Medicine | DX: M25.561 Pain in right knee (principal) | CPT/HCPCS: 99212 ==

== ENCOUNTER → 2022-02-14 08:43 | Outpatient (BNVA) | payer OTHER, SELFPAY | PROVIDERS: PCP Family Medicine; Visit Provider Internal Medicine | DX: M25.561 Pain in right knee (principal) | CPT/HCPCS: 99212 ==

== ENCOUNTER → 2022-04-04 08:49 | Outpatient (BNVA) | payer OTHER, SELFPAY | PROVIDERS: PCP Family Medicine; Visit Provider Internal Medicine | DX: Z13.89 Encounter for screening for other disorder (principal) ==

== ENCOUNTER 2022-09-25 11:23 | Outpatient (REF) | payer OTHER, SELFPAY | END 2022-09-25 11:24 | disposition home or self-care (01) | LOC: HO.LAB 11:23 | PROVIDERS: PCP Family Medicine; Visit Provider Nurse Practitioner Family | DX: Z13.89 Encounter for screening for other disorder (principal) ==